=== PATIENT | female | born 1980 | race Caucasian/White ===

== ENCOUNTER 2021-02-20 11:50 | Day surgery (SDC) | payer BC ==
[~2021-02-20] VITALS: Ht 172.7 cm; Wt 119.2 kg
--- NOTE | ~2021-02-20 | OR ---
[facility] [address] [place], [place] [address] Draft DATE OF OPERATION: 02/20/2021 SURGEON: Alice Bella MD PREOPERATIVE DIAGNOSIS: Medial meniscus tear, right knee. POSTOPERATIVE DIAGNOSIS: Medial meniscus tear, right knee. PROCEDURE PERFORMED: Right knee arthroscopy with partial medial meniscectomy. TUBE MOLDER FIBERGLASS: None. ANESTHESIA: General. BLOOD LOSS: Minimal. BRIEF HISTORY: Rocco is a 41-year-old female with pain and instability in her knee. MRI was consistent with the above. Risks and benefits of operative treatment were discussed with her when she had failed operative treatment and she elected to proceed. DESCRIPTION OF PROCEDURE: Once consent was obtained, she was taken to the operating room. After adequate anesthesia, she was placed on operating room table. Left leg was flexed, abducted, and externally rotated in well-padded leg mortensen. Her leg was placed in our leg mortensen, so was left free. The leg was then prepped and draped in a standard sterile fashion. Portal sites were injected with 0.25% Marcaine with epinephrine. A standard inferior lateral and superolateral portals were made and the scope was introduced in the knee. 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 There were grade 2 changes on the trochlea. Medial and lateral gutters were clear with significant synovitis. ACL and PCL were intact. Lateral compartment was intact. Medial PATIENT NAME: ROCCO HANCOCK OPERATIVE REPORT DATE OF : 78 REPORT #: [id number] PHYSICIAN: ALICE BELLA MD PCP: KAYLA CARBAJAL REPORT IS CONFIDENTIAL AND NOT TO BE RELEASED WITHOUT AUTHORIZATION [facility] [address] [place] [address] [place], [place] [address] Draft compartment showed diffuse grade 2 to grade 3 chondromalacia of the medial femoral condyle. grade 2 changes on the tibial side. The meniscus showed a degenerative tear posteriorly. DESCRIPTION OF OPERATION: Standard inferomedial portal was made after localization using a spinal needle. The straight biter was then used to trim the tear back to a stable rim. This was smoothed and feathered out using the shaver and all debris was evacuated. The scope was then withdrawn. Portals closed with 3-0 nylon. We injected the knee with 60 mg Toradol at the end of the case. The wounds were dressed with Adaptic, ABD, and Ran wrap. She tolerated the procedure well. All sponge, needle, and instrument counts were correct. Alice Bella MD BA/SHABANA /[id number] Copies: ~ PATIENT NAME: ROCCO HANCOCK OPERATIVE REPORT DATE OF : 78 REPORT #: [id number] PHYSICIAN: ALICE BELLA MD PCP: KAYLA CARBAJAL REPORT IS CONFIDENTIAL AND NOT TO BE RELEASED WITHOUT AUTHORIZATION
[~2021-02-20 11:50] MED LIST: DULOXETINE HCL60 MG PO; FEMARA2.5 MG NG; HYDROCODON-ACE1 EA10 PO; SINGULAIR10 MG PO
[2021-02-20] MEDS ORDERED: HYDROCODON-ACE1 EA10 PO (17:22)
[2021-02-20] MEDS ORDERED: CELECOXIB200 MG PO (17:22)
--- NOTE | 2021-02-20 18:06 | NUR ---
PATIENT ARRIVED TO MED/SURG ROOM 124 AT 1800. PATIENT RATES RIGHT KNEE 3/10 AND "UNCOMFORTABLE." PATIENT IS SITTING UP IN BED AND SIPPING ON A PROTEIN SHAKE. PATIENT IS 97% ON ROOM AIR, NO NAUSEA.
--- NOTE | 2021-02-20 18:21 | NUR ---
02/20/21 182 Shala Estrada 1716 PT ARRIVED NON RESPONSIVE TO NOXIOUS STIMULI WITH OPA IN PLACE. LE 1721 PT REACTIVE. OPA REMOVED. 1732 C/O R KNEE PAIN 5/10. FENTANYL 50MCG GIVEN IVP. 1738 NO CHANGE IN PAIN LEVEL. FENTANYL 50MCG GIVEN IVP. 1744 PAIN INCREASED TO 6/10. MORPHINE 5MG GIVEN IVP. CRYO CUFF PLACED ON R KNEE. 1753 PAIN DOWN TO 4/10. MORPHINE 5MG GIVEN IVP. 1800 TO MS ROOM 124. REPORT GIVEN TO RN. SON AT BEDSIDE.
--- NOTE | 2021-02-20 20:19 | NUR ---
pt UP TO RESTROOM FOR VOID, SBA WITH FWW. DENIES PAIN. 350 ML CLEAR VOID IN TOILET AND UNMEASURED VOID. ASSISTED TO DRESS IN OWN CLOTHING. SL REMOVED WNL, CATH INTACT. WRITTEN AND VERBAL DISCHARGE INSTRUCTION PROVIDED. pt'S QUESTIONS ANSWERED. PERSONAL SUPPLIES AND TAKE HOME MEDICATION PACK WITH pt. ESCORTED TO FRONT OF HOSPITAL TO PERSONAL AUTO WITH ASHLEY SPEARS AND pt'S .
--- NOTE | 2021-02-20 21:20 | NUR ---
MESSAGE LEFT ON PHONE FOR PATIENT TO RETURN CALL, CRYO CUFF PLUG IN LEFT IN ROOM.
== END 2021-02-20 20:10 | disposition home or self-care (01) ==
LOC: DS 11:50
PROVIDERS: ATTEND Specialist
PROC: 0SBC4ZZ Excision of Right Knee Joint, Percutaneous Endoscopic Approach (ICD-10-PCS; principal; 2021-02-20 16:35)
DX: S83.241A Other tear of medial meniscus, current injury, right knee, initial encounter (principal); X58.XXXA Exposure to other specified factors, initial encounter; Z85.3 Personal history of malignant neoplasm of breast; Z90.13 Acquired absence of bilateral breasts and nipples; Z92.21 Personal history of antineoplastic chemotherapy; E66.01 Morbid (severe) obesity due to excess calories; Z68.39 Body mass index [BMI] 39.0-39.9, adult
CPT/HCPCS: 01400; 84703; J0131; J0690; J1100; J1885; J2250; J2270; J2405; J2704; J2765; J3010; J7121